=== PATIENT | male | born 1990 | race Two or more races ===

== ENCOUNTER 2017-05-08 00:05 | Emergency (ER) | payer OTHER ==
[~2017-05-08] VITALS: Ht 175.3 cm; Wt 58.1 kg
[~2017-05-08 00:05] MED LIST: NKM; PEPCID20 MG ORAL; ZOFRAN ODT4 MG ORAL
[2017-05-08 00:20] VITALS: BP 117/71
[2017-05-08] MEDS ORDERED: Ketorolac 30mg Inj IM ONE (00:45)
[2017-05-08] MEDS ORDERED: FIORICET1 EA ORAL (01:02)
[2017-05-08 01:10] VITALS: BP 117/71
--- NOTE | 2017-05-08 02:25 | Emergency Room Report ---
History of Present Illness General Chief Complaint: Headache Source: Patient Present Illness HPI 27-year-old male presents ED for evaluation. Patient complaining of headache for the last 3 days. Throbbing, 5 out of 10, frontal. Nonradiating. Denies photophobia or blurry vision. Denies nausea or vomiting. Denies neck stiffness. Denies fevers or chills. No other aggravating relieving factors. Denies any other associated symptoms Allergies: Coded Allergies: No Known Allergies (Unverified , 09/28/15) Patient History Past Medical History: none Past Surgical History: none Pertinent Family History: none Social History: Denies: smoking, alcohol use, drug use Immunizations: UTD Reviewed Nursing Documentation: PMH: Agreed, PSxH: Agreed Nursing Documentation-PMH Past Medical History: No Stated History Review of Systems All Other Systems: negative except mentioned in HPI Physical Exam Vital Signs Date Time Temp Pulse Resp B/P (MAP) Pulse Ox O2 Delivery O2 Flow Rate FiO2 05/08/17 00:14 97.5 73 18 122/73 98 Room Air 97.5 Sp02 EP Interpretation: reviewed, normal General Appearance: no apparent distress, alert, GCS 15, non-toxic Head: normocephalic, atraumatic Eyes: bilateral eye normal inspection, bilateral eye PERRL ENT: hearing grossly normal, normal pharynx, no angioedema, normal voice Neck: full range of motion, supple, no meningismus, supple/symm/no masses Respiratory: chest non-tender, lungs clear, normal breath sounds, speaking full sentences Cardiovascular #1: regular rate, rhythm, no edema Cardiovascular #2: 2+ carotid (R), 2+ carotid (L), 2+ radial (R), 2+ radial (L) , 2+ dorsalis pedis (R), 2+ dorsalis pedis (L) Gastrointestinal: normal bowel sounds, non tender, soft, non-distended, no guarding, no rebound Rectal: deferred Genitourinary: normal inspection, no CVA tenderness Musculoskeletal: back normal, gait/station normal, normal range of motion, non- tender Neurologic: alert, oriented x3, responsive, motor strength/tone normal, sensory intact, speech normal Psychiatric: judgement/insight normal, memory normal, mood/affect normal, no suicidal/homicidal ideation Reflexes: 3+ bicep (R), 3+ bicep (L), 3+ tricep (R), 3+ tricep (L), 3+ knee (R) , 3+ knee (L) Skin: normal color, no rash, warm/dry, well hydrated Lymphatic: no adenopathy Medical Decision Making Diagnostic Impression: Primary Impression: Headache Qualified Codes: R51 - Headache ER Course Hospital Course 27-year-old male presents to ED complaining of headaches, throbbing in nature x3 days. No photophobia, no nausea or vomiting Differential diagnoses include: tension headache, migraine, dehydration, intracranial bleed Clinical course Patient placed on stretcher. After initial history physical exam reveals a male in no acute distress. There is no focal neurological deficits. No nuchal rigidity. remainder of physical exam unremarkable i ordered toradol, reglan Upon reassessment patient states pain has improved. Patient feels better wishes to go home. Given the lack of fever, nuchal rigidity or neurological findings my suspicion for intracranial pathology is low patient be safely discharged to home. i. I feel this is a highly complex case requiring extensive working including EKG/Rhythm strip, Xray/CT/US, Blood/urine lab work, repeat exams while in ED, and administration of strong opiates/narcotics for pain control, admission to hospital or close patient follow up. Diagnosis - headache stable and discharged to home with Rx Fioricet. f/up with PMD. return to ED if symptoms recur/worsen. Last Vital Signs Date Time Temp Pulse Resp B/P (MAP) Pulse Ox O2 Delivery O2 Flow Rate FiO2 05/08/17 01:07 97.5 05/08/17 00:14 73 18 122/73 98 Room Air Status: improved Disposition: HOME, SELF-CARE Condition: Stable Scripts Acetamin/Butalbital/Caffeine* (FIORICET*) 1 Ea Tab 1 TAB ORAL Q6H, #15 TAB 0 Refills Prov: RITO TORRES M.D. 05/08/17 Referrals: NOT CHOSEN [facility]/,REFERRING (PCP) Patient Instructions: Tension Headache RITO TORRES M.D. May 08, 2017 02:25
== END 2017-05-08 01:10 | disposition home or self-care (01) ==
LOC: EMR 00:29
DX: R51 Headache (principal)
CPT/HCPCS: 96372; 99283; J1885

== ENCOUNTER 2017-10-17 04:04 | Emergency (ER) | payer OTHER ==
[~2017-10-17] VITALS: Ht 185.4 cm; Wt 59.9 kg
[~2017-10-17 04:04] MED LIST changes: +FIORICET1 EA ORAL
[2017-10-17 05:14] VITALS: BP 96/63
[2017-10-17] MEDS ORDERED: IBUPROFEN600 MG ORAL (05:26)
[2017-10-17 05:30] VITALS: BP 96/63
--- NOTE | 2017-10-17 06:14 | Diagnostic Imaging Report ---
EXAM: XR Chest, 1 View CLINICAL HISTORY: PAIN TECHNIQUE: Frontal view of the chest. COMPARISON: No relevant prior studies available. FINDINGS: Normal heart size. No evidence for edema, consolidation or other acute cardiopulmonary process. IMPRESSION: No acute cardiopulmonary process
--- NOTE | 2017-10-17 06:47 | Emergency Room Report ---
History of Present Illness General Chief Complaint: General Complaint Present Illness HPI Patient is a 27-year-old male who presented after increased right upper extremity and lower extremity discomfort. Patient had reportedly been previously examined by neurology for similar symptoms. He reports having the symptoms for several weeks. He denies any recent trauma. Patient states that he had not been having any fever. He denies any weakness. Allergies: Coded Allergies: No Known Allergies (Unverified , 09/28/15) Patient History Reviewed Nursing Documentation: PMH: Agreed; PSxH: Agreed Review of Systems All Other Systems: negative except mentioned in HPI Physical Exam Vital Signs Date Time Temp Pulse Resp B/P (MAP) Pulse Ox O2 Delivery O2 Flow Rate FiO2 10/17/17 04:06 98.3 64 18 109/60 98 Room Air 98.2 General Appearance: well appearing, no apparent distress, alert, GCS 15 Head: normocephalic, atraumatic ENT: hearing grossly normal, normal voice Neck: full range of motion, supple Respiratory: no respiratory distress, speaking full sentences Cardiovascular #1: normal inspection, normal peripheral pulses, regular rate, rhythm, no edema Musculoskeletal: normal inspection, no calf tenderness Neurologic: normal inspection, alert, oriented x3, normal gait Psychiatric: mood/affect normal Skin: no rash Medical Decision Making Diagnostic Impression: Primary Impression: Leg pain, right ER Course Patient presented for extremity pain. Differential diagnosis included but was not limited to fracture, contusion, vascular insufficiency, aortic aneurysm, cellulitis. Patient has a benign exam and does not appear to require any laboratory testing at this time. Chest x-ray one view the interpreted by me showed normal Cardex of without evident infiltrate. EKG interpreted by me showed normal sinus rhythm without acute ST or T wave changes with the left ventricular hypertrophy.The patient is advised to follow up with primary care doctor in 1-2 days. Patient is advised to return if any worsening condition or if any changes in status that are concerning. This report is dictated with [employer] analyst software which may occasionally lead to discrepancies related to use of this software. Last Vital Signs Date Time Temp Pulse Resp B/P (MAP) Pulse Ox O2 Delivery O2 Flow Rate FiO2 10/17/17 05:30 98.0 57 18 96/63 100 Room Air 98.0 Status: improved Disposition: HOME, SELF-CARE Condition: Stable Scripts Ibuprofen* (MOTRIN*) 600 Mg Tablet 600 MG ORAL Q8H PRN for For Pain, #30 TAB 0 Refills Prov: Shawn Navas MD 10/17/17 Patient Instructions: Arthritis Shawn Navas MD Oct 17, 2017 06:47
--- NOTE | 2017-10-18 14:47 | Cardiology Report ---
APPROVED REPORT EKG Measurement Heart [id number] Sinus bradycardia Possible Acute pericarditis Abnormal ECG
== END 2017-10-17 05:30 | disposition home or self-care (01) ==
LOC: EMR 04:47
DX: M79.604 Pain in right leg (principal)
CPT/HCPCS: 71045; 82962; 93005; 99283